=== PATIENT | female | born 1975 | race Caucasian/White ===

== ENCOUNTER 2017-08-26 17:02 | Emergency (ER) | payer SELFPAY ==
[2017-08-26 17:25] VITALS: TEMP 98.3
--- NOTE | 2017-08-26 17:32 | ED.PDOC ---
History of Present Illness - General Chief Complaint: Respiratory Problem Stated Complaint: cough and fever Time Seen by Provider: 08/26/17 17:32 Source: patient Exam Limitations: no limitations - History of Present Illness Comments: Berta Dye 42 y/o female seen in ER with non productive cough ,fever since Aug.03 and stated her cough still lingers since it started.No ill contact; no foreign travel Timing/Duration: intermittent, other - see hpi Cough Quality/Degree: dry cough Possible Cause: no prior episodes Improving Factors: nothing Worsening Factors: nothing Associated Symptoms: other - see hpi Allergies/Adverse Reactions: Allergies Codeine Allergy (Verified 08/26/17 17:26) Anaphylaxis Home Medications: Ambulatory Orders Amoxicillin [Amoxil] 1,000 mg PO BID #30 cap 08/26/17 Review of Systems - Review of Systems Constitutional: States: no symptoms reported EENTM: States: see HPI, nose congestion Respiratory: States: see HPI, cough Cardiology: States: no symptoms reported Gastrointestinal/Abdominal: States: no symptoms reported Genitourinary: States: no symptoms reported Musculoskeletal: States: no symptoms reported Skin: States: no symptoms reported Neurological: States: no symptoms reported All other Systems: Reviewed and Negative, No Change from Baseline Past Medical History (General) - Patient Medical History Hx Asthma: No Hx Other PMH: Yes - PTSD Surgical History: other - eyes,cts,knee ,fimbriectomy right for tubal - Vaccination History Hx Influenza Vaccination: No - Social History Hx Tobacco Use: No Hx Alcohol Use: No Hx Substance Use: No Hx Substance Use Treatment: No Hx Depression: No Hx Physical Abuse: No Hx Emotional Abuse: No Hx Suspected Abuse: No - Female History Patient is a Female of Child Bearing Age (10 -59 yrs old): Yes Hx Last Menstrual Period: 07/30/17 Patient : No Family Medical History - Family History Mother Family History: No Known Physical Exam - Physical Exam General Appearance: Alert, Comfortable, No apparent distress Eye Exam: bilateral normal ENT Exam: normal ENT inspection, hearing grossly normal, pharynx normal, nasal congestion Neck: non-tender, full range of motion, supple, trachea midline Respiratory: chest non-tender, lungs clear, normal breath sounds, other - speaks in full sentences Cardiovascular/Chest: normal peripheral pulses, regular rate, rhythm, no murmur Gastrointestinal/Abdominal: non tender, soft, no organomegaly Extremity: no pedal edema, no calf tenderness Neurologic: alert, oriented x 3 Skin Exam: normal color, warm/dry Progress - Progress Progress: 08/26/17 17:52 Last Vital Signs Temp 98.3 F 08/26/17 17:22 Pulse 94 H 08/26/17 17:22 Resp 20 08/26/17 17:22 BP 136/80 08/26/17 17:22 Pulse Ox 97 08/26/17 17:22 - Results/Orders Results/Orders: Laboratory Tests 08/26/17 18:00 WBC 11.1 H RBC 5.24 Hgb 15.0 Hct 45.8 MCV 87.4 MCH 28.7 MCHC 32.8 L RDW 13.8 Plt Count 292 MPV 9.4 Absolute Neuts (auto) 9.20 H Absolute Lymphs (auto) 1.50 Absolute Monos (auto) 0.40 Absolute Eos (auto) 0.00 Absolute Basos (auto) 0.10 Neutrophils % 83.0 H Lymphocytes % 13.2 L Monocytes % 3.2 Eosinophils % 0.1 L Basophils % 0.5 - EKG/XRAY/CT XRAY: chest - no acute process Departure - Departure Clinical Impression: Upper respiratory infection Qualifiers: URI type: unspecified URI Qualified Code(s): J06.9 - Acute upper respiratory infection, unspecified Time of Disposition: 18:32 Disposition: Discharge to Home or Self Care Condition: Good Departure Forms: ED Discharge - Pt. Copy, Patient Portal Self Enrollment Prescriptions: Amoxicillin [Amoxil] 1,000 mg PO BID #30 cap Home Medications: Ambulatory Orders Amoxicillin [Amoxil] 1,000 mg PO BID #30 cap 08/26/17 Additional Instructions: May use over the counter cough medicine Mucinex DM-one tablet am/pm for cough; Benadryl 25 mg 1-2 capsules am/pm Nasal saline spray 3 sprays each nose as needed for nasal congestion;Afrin nose spray 2 sprays each nose am/pm for nasal congestion 3 days on 3 days off Aleve 1-2 tablets am/pm for pain
--- NOTE | 2017-08-26 18:12 | RAD ---
PROCEDURE: XR CHEST 1 VIEW HISTORY: cough COMPARISON: None TECHNIQUE: Single projection of the chest was done. FINDINGS: The lung ngo are well inflated . There are no discrete airspace infiltrates, pneumothoraces or pleural effusions. The pulmonary vascularity is normal. The cardiomediastinal silhouette is unremarkable for patient's age and sex. IMPRESSION: There is no acute pleural-parenchymal process seen in the imaged lung ngo. Location of Interpretation: Teleradiology Electronically signed by: Mike Brower MD 08/26/2017 6:11 PM [facility] Workstation: [id number]
[2017-08-26] MEDS ORDERED: AMOXICILLIN 500 MG CAP PO ONE (18:33)
[2017-08-26] MEDS ORDERED: BENZONATATE PERLES 100 MG CAP PO ONE (18:33)
[2017-08-26] MEDS ORDERED: diphenhydrAMINE HCL 25 MG CAP PO ONE (18:34)
[2017-08-26 18:52] VITALS: BP 124/79; O2SAT 96
== END 2017-08-26 18:51 | disposition home or self-care (01) ==
LOC: ER 17:02
DX: J06.9 Acute upper respiratory infection, unspecified (principal)
CPT/HCPCS: 36415; 71045; 85025; Q0163

== ENCOUNTER 2018-03-08 22:14 | Emergency (ER) | payer OTHER ==
--- NOTE | 2018-03-08 22:56 | ED.PDOC ---
History of Present Illness - General Chief Complaint: [employer] Problem Stated Complaint: 8 weeks , vaginal bleeding Time Seen by Provider: 03/08/18 22:42 Source: patient Exam Limitations: no limitations - History of Present Illness Initial Comments: the patient's a 42-year-old female presenting to the emergency room secondary to vaginal bleeding in the first trimester. She is not having cramping but she went to use the bathroom and found that she was spotting. The patient is approximately 8 weeks gestational age and she has seen her senior foreman 2 weeks ago who confirmed an intrauterine with a transvaginal ultrasound. She is certain that her blood type is A+. No trauma. No bleeding problems. No [id number] blood thinners or prescription blood thinners. Timing/Duration: 1-3 hours Severity: mild Improving Factors: nothing Worsening Factors: nothing Associated Symptoms: denies symptoms Allergies/Adverse Reactions: Allergies Codeine Allergy (Verified 08/26/17 17:26) Anaphylaxis Home Medications: Ambulatory Orders Amoxicillin [Amoxil] 1,000 mg PO BID #30 cap 08/26/17 Review of Systems - Review of Systems Constitutional: States: no symptoms reported EENTM: States: no symptoms reported Respiratory: States: no symptoms reported Cardiology: States: no symptoms reported Gastrointestinal/Abdominal: States: no symptoms reported Genitourinary: States: see HPI Musculoskeletal: States: no symptoms reported Skin: States: no symptoms reported Neurological: States: no symptoms reported Endocrine: States: no symptoms reported All other Systems: No Change from Baseline Past Medical History (General) - Patient Medical History Hx Asthma: No - Vaccination History Hx Influenza Vaccination: No - Social History Hx Tobacco Use: No Hx Alcohol Use: No Hx Substance Use: No Hx Substance Use Treatment: No Hx Depression: No Hx Physical Abuse: No Hx Emotional Abuse: No Hx Suspected Abuse: No - Female History Hx Last Menstrual Period: 07/30/17 Patient : No Family Medical History - Family History Mother Family History: No Known Physical Exam - Physical Exam General Appearance: Alert, Comfortable, No apparent distress Eye Exam: bilateral normal Ears, Nose, Throat: hearing grossly normal Neck: supple Respiratory: no respiratory distress, no accessory muscle use Cardiovascular/Chest: normal peripheral pulses, no edema Peripheral Pulses: radial,right: 2+, radial,left: 2+ Gastrointestinal/Abdominal: non tender, soft Rectal Exam: deferred Back Exam: no CVA tenderness, no vertebral tenderness Extremity: non-tender, normal inspection, no pedal edema, normal capillary refill 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 Low resolution transabdominal ultrasound performed by me confirms intrauterine with a fetus with cardiac motion. Pelvic exam is not done. Patient reports her blood type is A+ . The patient will be allowed to go home and rest. Pelvic rest is recommended. She needs to contact her senior foreman in the morning for further instructions. ER warnings were given. The patient is not to go to work tomorrow. Departure - Departure Clinical Impression: Threatened miscarriage Disposition: Discharge to Home or Self Care Condition: Fair Departure Forms: ED Discharge - Pt. Copy, Patient Portal Self Enrollment Instructions: DI for Threatened Diet: regular diet Activity: increase activity as tolerated - pelvic rest Home Medications: Ambulatory Orders Amoxicillin [Amoxil] 1,000 mg PO BID #30 cap 08/26/17 Additional Instructions: the patient's a 42-year-old female presenting in approximately 8 weeks gestational age with a threatened miscarriage. Low resolution transabdominal ultrasound performed by me confirms intrauterine with a fetus with cardiac motion. Pelvic exam is not done. Patient reports her blood type is A+ . The patient will be allowed to go home and rest. Pelvic rest is recommended. She needs to contact her senior foreman in the morning for further instructions. ER warnings were given. The patient is not to go to work tomorrow.
[2018-03-08 23:13] VITALS: BP 110/76; TEMP 98.1; O2SAT 98
== END 2018-03-08 23:17 | disposition home or self-care (01) ==
LOC: ER 22:14
DX: O20.0 Threatened abortion (principal); Z3A.08 8 weeks gestation of pregnancy